=== PATIENT | female | born 1955 | race Caucasian/White ===

== ENCOUNTER 2017-03-29 07:27 | Day surgery (SDC) | payer BC ==
[~2017-03-29] VITALS: Ht 162.6 cm; Wt 51.6 kg
[~2017-03-29 07:27] MED LIST: ESTRPATC TOP; IBUP-1724 PO; LIDOCAINE 1% (10mg/ml) 2ml SDV INJ ONE; LR 1,000 ML IV SCH; OXYC-541 PO
[2017-03-29 07:35] VITALS: BP 112/67; PULSE 54; RESP 16; TEMP 97.7; O2SAT 98; Ht 162.6 cm; Wt 51.6 kg
--- OUTSIDE RECORDS SUMMARY | 2017-03-29 07:37 | XMS REPORT ---
Author Author Gaby Holder Organization [employer] Address Unknown Phone Unavailable Care Team Providers Care Sediment Remediation Consultant Name Role Phone Gaby Holder Unavailable Allergies No Known Allergies Problems No Known Problems Medications No Known Medications Results No Known Results Summary Purpose eClinicalWorks Submission
--- OUTSIDE RECORDS SUMMARY | 2017-03-29 07:37 | XMS REPORT ---
Author Author Gaby Holder Organization [employer] Address Unknown Phone Unavailable Care Team Providers Care Development Chemist Name Role Phone Gaby Holder Unavailable Allergies No Known Allergies Problems Problem Type Condition Code Onset Dates Condition Status Problem Menopause 627.2 Active Problem Weakness of left leg M62.81 Active Problem Numbness and tingling of leg R20.2 Active Problem Spinal stenosis of lumbosacral region M48.07 Active Problem Raynaud phenomenon 443.0 Active Problem Degenerative lumbar spinal stenosis 724.02 Active Problem Raynauds disease without gangrene I73.00 Active Problem Intrinsic eczema L20.84 Active Medications No Known Medications Results No Known Results Summary Purpose eClinicalWorks Submission
--- OUTSIDE RECORDS SUMMARY | 2017-03-29 07:37 | XMS REPORT ---
Author Author Gaby Holder Organization [employer] Address Unknown Phone Unavailable Care Team Providers Care Gas Distribution Supervisor Name Role Phone Gaby Holder Unavailable Allergies No Known Allergies Problems Problem Type Condition Code Onset Dates Condition Status Problem Degenerative lumbar spinal stenosis 724.02 Active Problem Menopause 627.2 Active Problem Raynaud phenomenon 443.0 Active Medications No Known Medications Results No Known Results Summary Purpose eClinicalWorks Submission
--- OUTSIDE RECORDS SUMMARY | 2017-03-29 07:37 | XMS REPORT ---
Author Author Gaby Holder Organization [employer] Address Unknown Phone Unavailable Care Team Providers Care Contact Person Name Role Phone Gaby Holder CP Unavailable Allergies, Adverse Reactions, Alerts Substance Reaction Event Type N.K.D.A. Info Not Available Non Drug Allergy Problems Problem Type Condition Code Onset Dates Condition Status Assessment Weakness of left leg M62.81 Active Problem Menopause 627.2 Active Assessment Spinal stenosis of lumbosacral region M48.07 Active Problem Weakness of left leg M62.81 Active Problem Numbness and tingling of leg R20.2 Active Problem Spinal stenosis of lumbosacral region M48.07 Active Problem Raynaud phenomenon 443.0 Active Problem Degenerative lumbar spinal stenosis 724.02 Active Problem Raynauds disease without gangrene I73.00 Active Problem Intrinsic eczema L20.84 Active Assessment Intrinsic eczema L20.84 Active Assessment Raynauds disease without gangrene I73.00 Active Assessment Numbness and tingling of leg R20.2 Active Medications Medication Code System Code Instructions Start Date End Date Status Dosage Clobestasol NDC 0 0.05% topically BID Oct 26, 2015 as directed Mobic [facility] [address]-08 7.5 MG Orally Once a day Oct 26, 2015 1 tablet [place] [facility] [address]-00 5-325 MG Orally every 6 hrs March 01, 2015 1 tablet as needed Procedures Procedure Coding System Code Date OFFICE VISITEST PT CPT-4 76073 Oct 26, 2015 Vital Signs Date/Time: Oct 26, 2015 Blood Pressure Systolic 108 mm Hg Height 64 in Weight 116.8 lbs BMI 20.05 Index Blood Pressure Diastolic 72 mm Hg Results No Known Results Summary Purpose eClinicalWorks Submission
--- OUTSIDE RECORDS SUMMARY | 2017-03-29 07:37 | XMS REPORT ---
Author Author Gaby Holder Organization [employer] Address Unknown Phone Unavailable Care Team Providers Care Plant Manager Name Role Phone Gaby Holder Unavailable Allergies No Known Allergies Problems No Known Problems Medications No Known Medications Results No Known Results Summary Purpose eClinicalWorks Submission
--- OUTSIDE RECORDS SUMMARY | 2017-03-29 07:37 | XMS REPORT ---
Author Author Gaby Holder [facility] e[employer] Address Unknown Phone Unavailable Care Team Providers Care Harbor Engineer Name Role Phone Gaby Holder Unavailable Allergies, Adverse Reactions, Alerts Substance Reaction Event Type N.K.D.A. Info Not Available Non Drug Allergy Problems Problem Type Condition ICD-9 Code Onset Dates Condition Status Problem Degenerative lumbar spinal stenosis 724.02 Active Problem Menopause 627.2 Active Problem Raynaud phenomenon 443.0 Active Assessment Menopause 627.2 Active Assessment Degenerative lumbar spinal stenosis 724.02 Active Assessment Raynaud phenomenon 443.0 Active Medications Medication Code System Code Instructions Start Date End Date Status Dosage Amlodipine Besylate [facility] [address]-71 2.5 MG Orally daily March 01, 2015 1 tablet Vivelle-Dot [facility] [address]-28 0.0375 MG/24HR Transdermal 1 patch to skin [place] [facility] [address]-55 5-325 MG Orally every 6 hrs March 01, 2015 1 tablet as needed Procedures Procedure Coding System Code Date OFFICE VISITEST PT CPT-4 49509 Jul 27, 2015 Vital Signs Date/Time: Jul 27, 2015 Blood Pressure Systolic 115 mm Hg Height 64 in Weight 114.7 lbs BMI 19.69 Index Oximetry 98 % Cardiac Monitoring Heart Rate 62 /min Blood Pressure Diastolic 75 mm Hg Results No Known Results Summary Purpose eClinicalWorks Submission
--- OUTSIDE RECORDS SUMMARY | 2017-03-29 07:37 | XMS REPORT ---
Author Author Gaby Holder Organization [employer] Address Unknown Phone Unavailable Care Team Providers Care Press Tender Incendiary Grenade Name Role Phone Gaby Holder Unavailable Allergies No Known Allergies Problems No Known Problems Medications No Known Medications Results No Known Results Summary Purpose eClinicalWorks Submission
--- OUTSIDE RECORDS SUMMARY | 2017-03-29 07:37 | XMS REPORT | Referral Summary ---
Author Organization Unknown Address Unknown Phone Unavailable Care Team Providers Care Mine Wirer Name Role Phone Cammie Rockwell Primary Care Physician [phone] Encounter [facility] [id number] Date(s): 01/21/15 - 01/21/15 [address] [facility] Alvarez, Henrik, Family Medicine [address] [place] [address] Discharge Diagnosis: Left sided sciatica Discharge Diagnosis: Fatigue Discharge Diagnosis: Xerosis of skin Discharge Disposition: Home or Self Care Attending Physician: Mariaelena Rockwell MD Admitting Physician: Mariaelena Rockwell MD Vital Signs Most recent to 1 oldest [Reference Range]: Apical Heart Rate 14 bpm [60-100 bpm] *LOW* (01/21/15 9:41 AM) Peripheral Pulse 64 bpm Rate [60-100 bpm] (01/21/15 9:41 AM) Blood Pressure 98/64 mmHg [90-140/60-90 mmHg] (01/21/15 9:41 AM) Problem List Condition Effective Dates Status Health Status Informant Xerosis of Active skin(Confirmed) Fatigue(Confirmed) Active Mitral valve Active disorder (disorder)(Confirmed ) Left sided Active sciatica(Confirmed) Allergies, Adverse Reactions, Alerts Substance Reaction Severity Status aspirin Active Medications Percocet 5/325 oral tablet 1 tabs, Oral, q4hr, as needed for pain, # 30 tabs, 0 Refill(s) Start Date: 01/21/15 Stop Date: 02/15/15 Status: Ordered Vivelle-Dot 0.0375 mg/24 hours twice weekly transdermal film, extended release 1 patches, Topical, 2x/Wk, # 24 patches, 1 Refill(s), called to pharmacy (Rx) Start Date: 06/11/14 Status: Ordered Results Hematology Most recent to 1 oldest [Reference Range]: WBC [4.8-10.8 K/uL] 4.0 K/uL *LOW* (01/21/15:25 AM) RBC [4.00-5.20 M/uL] 4.46 M/uL (01/21/15 10: AM) Hgb [12.0-16.0 14.6 gm/dL gm/dL] (01/21/15 10: AM) Hct [37.0-47.0 %] 42.3 % (01/21/15 AM) MCV [82.0-99.0 fL] 94.8 fL (01/21/15: AM) MCH [27.0-32.0 pg] 32.7 pg *HI* (01/21/15:) MCHC [32.0-36.0 34.5 gm/dL gm/dL] (01/21/15: AM) RDW [11.5-14.5 %] 12.8 % (01/21/15: AM) Platelet [150-400 183 K/uL K/uL] (01/21/15 10:25 AM) MPV [8.8-14.8 fL] 11.9 fL (01/21/15 10:25 AM) Immature 0.0 % Granulocytes (01/21/15:) [0.0-1.0 %] Neutrophils [51-75 54 % %] (01/21/15:25 AM) Lymphocytes [20-46 39 % %] (01/21/15: AM) Monocytes [4-11 %] 5 % (01/21/15:25 AM) Eosinophils [0-4 %] 2 % (01/21/15 10:25 AM) Basophils [0-2 %] 0 % (01/21/15 10:25 AM) Neutro Absolute 2.16 THOUS [1.90-7.00 THOUS] (01/21/15 10:25 AM) Lymph Absolute 1.57 THOUS [0.80-3.30 THOUS] (01/21/15 10:25 AM) [place] Absolute 0.21 THOUS [0.30-1.00 THOUS] *LOW* (01/21/15:25 AM) Eos Absolute 0.06 THOUS [0.00-0.50 THOUS] (01/21/15 10:25 AM) Baso Absolute 0.01 THOUS [0.00-0.20 THOUS] (01/21/15 10:25 AM) Sed Rate [0-23 6 mm/hr mm/hr] (01/21/15:25 AM) Chemistry Most recent to 1 oldest [Reference Range]: Sodium Lvl [135-144 142 mEq/L mEq/L] (01/21/15:25 AM) Potassium Lvl 5.0 mEq/L [3.5-5.2 mEq/L] (01/21/15:25 AM) Chloride [99-111 104 mEq/L mEq/L] (01/21/15: AM) CO2 [22-31 mEq/L] 24 mEq/L (01/21/15:25 AM) AGAP [3-20] 14 (01/21/15:25 AM) BUN [10-20 mg/dL] 12 mg/dL (01/21/15:25 AM) Glucose Lvl [70-99 78 mg/dL mg/dL] (01/21/15:25 AM) Creatinine Lvl 0.87 mg/dL [0.57-1.11 mg/dL] (01/21/15:25 AM) eGFR [>60 mL/min] >60 mL/min 2 (01/21/15:25 AM) Calcium Lvl 9.9 mg/dL [8.9-10.5 mg/dL] (01/21/15:25 AM) Albumin Lvl [3.5-5.0 4.4 gm/dL gm/dL] (01/21/15:25 AM) Total Protein 7.0 gm/dL [6.2-8.1 gm/dL] (01/21/15:25 AM) Globulin [1.8-4.0 2.6 gm/dL gm/dL] (01/21/15:25 AM) ALT [0-55 unit/L] 22 unit/L (01/21/15:25 AM) AST [5-34 unit/L] 29 unit/L 1 (01/21/15:25 AM) Alk Phos [40-150 52 unit/L unit/L] (3/5/15 10:25 AM) Bili Total [0.2-1.2 1.0 mg/dL mg/dL] (01/21/15 10:25 AM) TSH with Reflex Free 0.94 T4 [0.35-4.94] (01/21/15 10:25 AM) 1Result Comment: Specimen slighly hemolyzed. LDH, AST and Direct Bilirubin may be affected. 2Result Comment: Multiply eGFR results by 1.21 for race. Immunizations Vaccine Date Refusal Reason influenza virus vaccine, live 11/04/13 influenza virus vaccine, live 11/14/12 influenza virus vaccine, live 10/10/10 influenza virus vaccine, live 10/01/08 influenza virus vaccine, live 11/21/07 influenza virus vaccine, live 10/29/06 tetanus-diphth toxoids (Td) adult/adol 06/12/03 Procedures Procedure Date Related Diagnosis Body Site Collection of venous blood by venipuncture 01/21/15 Social History Social History Type Response Smoking Status Never smoker Assessment and Plan Extracted from: Title: Ambulatory Patient Education Author: Mariaelena Rockwell MD Date: 01/21 Anesthesiology Epidural Steroid Injection An epidural steroid injection is given to relieve pain in the neck, back, or legs. This procedure involves injecting a steroid and numbing medicine (local anesthetic ) into the epidural space. The epidural space is the space between the outer covering of the spinal cord and the vertebra. The epidural steroid injection helps in reducing the pain that is caused by the irritation or swelling of the nerve root. However, it does not cure the underlying problem. The injection may be given for the following conditions: Changes in the soft, gel-like cushion between two vertebrae (disk ) due to wear and tear. A reduction in the space within the spinal canal. Slipped or herniated disk. Low back (lumbar ) sprain. Sciatica. This is shooting pain that radiates down the buttocks and the back of the leg due to compression of the nerve. Traumatic compression fracture of the vertebra. Pain that develops after a surgery of the spine. Pain that arises after an attack of viral infection affecting the nerves ( shingles ). LET YOUR CAREGIVER KNOW ABOUT: Allergies to food or medicine. Medicines taken, including vitamins, herbs, eyedrops, [id number] medicines, and creams. Use of steroids (by mouth or creams). Previous problems with anesthetics or numbing medicines. History of bleeding problems or blood clots. Previous surgery. Other health problems, including diabetes and kidney problems. Possibility of , if this applies. RISKS AND COMPLICATIONS The complications due to the needle insertion are: Headache. Bleeding. Infection. Allergic reaction to the medicines. Damage to the nerves. The complications due to the steroid are: Weight gain. Hot flashes. Mood swings. Lack of sleep. Increase in blood sugar levels, especially if you are diabetic. Retention of water. The response to this procedure depends on the underlying cause of the pain and its duration. Patients who have long-term (chronic ) pain are less likely to benefit from epidural steroids than are patients whose pain comes on strong and suddenly. BEFORE THE PROCEDURE The caregiver may ask about your symptoms, do a detailed exam, and advise some tests. These tests may include imaging studies. Your caregiver may review the results of your tests and discuss the procedure with you. Ask your caregiver about changing or stopping your regular medicines. You may be advised to stop taking blood-thinning medicines a few days before the procedure. You may also be given medicines to reduce your anxiety. PROCEDURE You will remain awake during the whole procedure. Although, you may receive medicine to make you sleepy. You will be asked to lie on your stomach. The site of the injection is cleansed. Then, the injection site is numbed using a small amount of medicine that numbs the area (local anesthetic ). A hollow needle is directed through your skin into the epidural space with the help of an X-ray. The X-ray helps to ensure that the steroid is delivered closest to the affected nerve. You may have some minimal discomfort at this time. Once the needle is in the right position, the local anesthetic and the steroid are injected into the epidural space. The needle is then removed. The skin is cleaned and a bandage is applied. The entire procedure takes only a few minutes, although repeated injections may be required (up to 3 to 4 injections over several weeks). AFTER THE PROCEDURE You may be monitored for a short time before you go home. You may feel weakness or numbness in your arm or leg, which disappears within 1 to 2 [address] must [address] you home or accompany you home if you are taking a taxi. You may be allowed to eat, drink, and take your regular medicine. Your pain may improve or worsen right after the procedure. You may feel the beneficial effect of the steroid a few days later. You may have soreness at the site of the injection. If you have only partial relief of the pain, the injection may be repeated once or even twice within 4 to 8 weeks of the initial injection. Document Released: 02/11/2009 Document Revised: 01/27/2013 Document Reviewed: [facility] [place] Patient Information 2014 [employer]. No follow up information was provided. Extracted from: Title: Office Visit Note- left Author: Mariaelena Rockwell MD Date: 01/21/15 sciatica Assessment/Plan Fatigue Labs today Ordered: C-Reactive Protein (CRP) CBC w/ Differential Comprehensive Metabolic Panel Office Visit Level 4 Est 07412 Sedimentation Rate TSH with Reflex Free T4 Left sided sciatica This is a patient who rarely complains. She has not returned since last year when we discussed her back pain initially. Clearly this is markedly worsened and has become disabling. I no longer think piriformis is involved here. Much more likely this represents lumbar disease either in the disc or perhaps degenerative changes. She requires an MRI to demonstrate findings to we can proceed with an epidural steroid injection. She may require a decompression surgery. Prescription for Percocet is given so that she can get comfortable and rest at night. Ordered: Office Visit Level 4 Est 46670 Xerosis of skin Discussed using hand environmental maintenance worker gel insert washing her hands often. Also recommended new skin to apply the cracks when they occur. [place] healing and cremate also be of benefit. We will get labs as well. Ordered: Office Visit Level 4 Est 46603 Orders: oxyCODONE-acetaminophen, 1 tabs, Oral, q4hr, as needed for pain, # 30 tabs, 0 Refill(s)
--- OUTSIDE RECORDS SUMMARY | 2017-03-29 07:38 | XMS REPORT ---
Author Author Gaby Holder Organization [employer] Address Unknown Phone Unavailable Care Team Providers Care Denture Finisher Name Role Phone Gaby Holder Unavailable Allergies [...]
--- OUTSIDE RECORDS SUMMARY | 2017-03-29 07:38 | XMS REPORT ---
Author Author Gaby Holder Organization [employer] Address Unknown Phone Unavailable Care Team Providers Care Groover And Turner Name Role Phone Gaby Holder Unavailable Allergies [...]
--- OUTSIDE RECORDS SUMMARY | 2017-03-29 07:38 | XMS REPORT ---
Author Author Gaby Holder Organization [employer] Address Unknown Phone Unavailable Care Team Providers Care Molding Supervisor Name Role Phone Gaby Holder Unavailable [...]
--- OUTSIDE RECORDS SUMMARY | 2017-03-29 07:38 | XMS REPORT ---
Author Author Gaby Holder Organization [employer] Address Unknown Phone Unavailable Care Team Providers Care Brine Mixer Operator Name Role Phone Gaby Holder Unavailable Allergies No Known Allergies Problems Problem Type Condition Code Onset Dates Condition Status Problem Intrinsic eczema L20.84 Active Problem Numbness and tingling of leg R20.2 Active Problem Raynauds disease without gangrene I73.00 Active Problem Stenosis, spinal, lumbar M48.06 Active Problem Menopausal and female climacteric states N95.1 Active Problem Spondylolisthesis M43.10 Active Problem Spinal stenosis of lumbosacral region M48.07 Active Problem Weakness of left leg M62.81 Active Problem Chronic insomnia F51.04 Active Problem Synovial cyst of lumbar facet joint M71.38 Active Problem Menopause 627.2 Active Problem Degenerative lumbar spinal stenosis 724.02 Active Problem Raynaud phenomenon 443.0 Active Medications No Known Medications Results No Known Results Summary Purpose eClinicalWorks Submission
--- OUTSIDE RECORDS SUMMARY | 2017-03-29 07:38 | XMS REPORT ---
Author Author Gaby Holder Organization [employer] Address Unknown Phone Unavailable Care Team Providers Care Rn Perinatal Name Role Phone Gaby Holder Unavailable Allergies No Known Allergies Problems Problem Type Condition Code Onset Dates Condition Status Assessment Synovial cyst of lumbar facet joint M71.38 Active Problem Menopause 627.2 Active Assessment Stenosis, spinal, lumbar M48.06 Active Assessment Spondylolisthesis M43.10 Active Problem Weakness of left leg M62.81 [...]
--- OUTSIDE RECORDS SUMMARY | 2017-03-29 07:38 | XMS REPORT ---
Author Author Gaby Holder [facility] eClinicalWorks Address Unknown Phone Unavailable Care Team Providers Care Strategic Accounts Manager Name Role Phone Gaby Holder CP Unavailable Allergies, Adverse Reactions, Alerts Substance Reaction Event Type N.K.D.A. Info Not Available Non Drug Allergy Problems Problem Type Condition Code Onset Dates Condition Status Assessment Raynaud phenomenon 443.0 Active Assessment Degenerative lumbar spinal stenosis 724.02 Active Assessment Degenerative disk disease 722.6 Active Medications Medication Code System Code Instructions Start Date End Date Status Dosage Amlodipine Besylate [facility] [address]-90 2.5 MG Orally daily March 01, 2015 1 tablet [place] [facility] [address]-99 5-325 MG Orally every 6 hrs March 01, 2015 1 tablet as needed Vivelle-Dot [facility] [address]-84 0.0375 MG/24HR Transdermal 1 patch to skin Procedures Procedure Coding System Code Date RA FACTOR CPT-4 47396 March 01, 2015 OFFICE VISITNEW PT CPT-4 99960 March 01, 2015 Antinuclear Antibodies CPT-4 62032 March 01, 2015 Vital Signs Date/Time: March 01, 2015 Blood Pressure Systolic 106 mm Hg Height 64 in Weight 113.2 lbs BMI 19.43 Index Oximetry 99 % Cardiac Monitoring Heart Rate 59 /min Blood Pressure Diastolic 76 mm Hg Results No Known Results Summary Purpose eClinicalWorks Submission
--- OUTSIDE RECORDS SUMMARY | 2017-03-29 07:38 | XMS REPORT ---
Author Author Gaby Holder [facility] eClinicalWorks Address Unknown Phone Unavailable Care Team Providers Care Community Engagement Manager Name Role Phone Gaby Holder Unavailable Allergies, [...] cyst of lumbar facet joint M71.38 Active Assessment Chronic insomnia F51.04 Active Assessment Menopausal and female climacteric states N95.1 Active Assessment Synovial cyst of lumbar facet joint M71.38 Active Assessment Pre-op evaluation Z01.818 Active Problem Menopause 627.2 Active Assessment Stenosis, spinal, lumbar M48.06 Active Problem Degenerative lumbar spinal stenosis 724.02 Active Assessment Spondylolisthesis M43.10 Active Problem Raynaud phenomenon 443.0 Active Medications Medication Code System Code Instructions Start Date End Date Status Dosage Clobestasol NDC 0 0.05% topically BID Oct 26, 2015 as directed [facility] [address]-68 5-325 MG Orally every 6 hrs March 01, 2015 1 tablet as needed Mobic [facility] [address]-72 7.5 MG Orally Once a day Oct 26, 2015 1 tablet Trazodone HCl [facility] [address]-09 50 MG Orally Once a day Nov 29, 2015 1 tablet at bedtime Procedures Procedure Coding System Code Date COMP PROFILE CPT-4 81212 Nov 29, 2015 URINALYSIS CPT-4 29065 Nov 29, 2015 CBC CPT-4 20988 Nov 29, 2015 EKG WITH INTERPRETAT CPT-4 91389 Nov 29, 2015 CHEST XRAY 2 VIEW CPT-4 31549 Nov 29, 2015 OFFICE VISITEST PT CPT-4 35410 Nov 29, 2015 Vital Signs Date/Time: Nov 29, 2015 Blood Pressure Systolic 110 mm Hg Height 64 in Weight 112.4 lbs BMI 19.29 Index Oximetry 99 % Cardiac Monitoring Heart Rate 61 /min Blood Pressure Diastolic 78 mm Hg Results Name Result Date Reference Range Unit Abnormality Flag Urinalysis ----BLOOD NEG 20151129 NEGATIVE ----BILIRUBIN NEG 20151129 NEGATIVE ----OTHER CASTS 0 20151129 NONE/LPF lpf ----LEUKOCYTES NEG 73534998 NEGATIVE ----MUCOUS 0 91252314 NONE/HPF hpf ----NITRITES NEG 59273720 NEGATIVE ----CRYSTALS 0 97331213 NONE/HPF hpf ----pH 8 30230379 5-8 ----BACTERIA 0 20151129 NONE/HPF hpf ----PROTEIN NEG 10835364 NEGATIVE ----SQUAMOUS EPITH OCCASIONAL 20151129 FEW/HPF hpf ----GLUCOSE NORM 20151129 NEG MG/DL ---- RBC 0-1 63816409 0-2/HPF hpf ----KETONES NEG 03406171 NEGATIVE ----COLOR YEL 20151129 YELLOW-STRAW ----UROBILINOGEN NORM 27772920 0 - 1.0 MG/DL ---- WBC 0-1 19056056 0-5/HPF hpf ----CLARITY CLEAR 20151129 CLEAR ----SPEC GRAVITY 1.002 75064550 1.016-1.022 CBC ----MCV 95.0 91615352 81.0-96.0 FL ----HCT 43.7 08118225 36.0-46.0 % ----MCHC 33.6 75560297 32.0-35.0 G/DL ----MCH 32.0 77497205 27.0-33.0 PG ----EO# 0.1 [id number] 0.0-0.2 X10^3/UL ----PLT 182 96922567 130-400 X10^3 ----EO% 1.5 23112505 0.0-3.0 % ----RDW 12.7 98593821 11.5-15.5 % ----MO# 0.2 [id number] 0.1-0.6 X10^3/UL ----MO% 4.7 [id number] 1.7-9.3 % ----LY# 1.6 [id number] 1.2-3.4 X10^3/UL ----BA# 0.0 [id number] 0.0-0.1 X10^3/UL ----BA% 0.2 49404636 0.0-1.0 % ----HGB 14.7 76439911 11.6-16.0 G/DL ----RBC 4.60 13581658 3.90-5.20 X10^6 ----MPV 11.9 [id number] 8.9-12.7 FL ----WBC 4.1 [id number] 4.0-10.0 X10^3/UL ----NE% 53.8 79452269 42.2-75.2 % ----NE# 2.2 [id number] 1.4-6.5 X10^3/UL ----LY% 39.8 [id number] 20.5-51.1 % COMPREHENSIVE CHEM PROFILE ----SODIUM 145 81151360 133-145 MMOL/L ----TOTAL BILI 0.52 42839327 0.00-1.00 MG/DL ----CHLORIDE 101 46525163 96-108 MMOL/L ----POTASSIUM 4.0 03660524 3.3-5.1 MMOL/L ----CALCIUM 10.3 27845802 8.7-10.3 MG/DL ----AST/SGOT 28 21089753 5-40 U/L ----CO2 30 81179020 23-31 MMOL/L ----TOTAL PROTEIN 7.3 96280956 5.9-8.4 G/DL ----eGFR If Am 77 48280679 >60 ml/min/1.73m^2 ----ALBUMIN 4.9 12476311 3.2-5.2 G/DL ----eGFR If Non Am 64 85629478 >60 ml/min/1.73m^2 ----BUN 14 20151129 8-23 MG/DL ----ALT/SGPT 25 20151129 5-40 U/L ----ALK PHOS 58 20151129 34-114 U/L ----CREATININE 0.9 20151129 0.4-1.1 MG/DL ----GLUCOSE 85 20151129 60-99 MG/DL ----GLOBULIN 2.4 20151129 2.0-4.4 G/DL Summary Purpose eClinicalWorks Submission
--- NOTE | 2017-03-29 07:45 | ANESPREOP ---
Anesthesia Record Date and Time DATE: 03/29/17 TIME: 07:43 Pre-Op Diagnosis crcs Proposed Surgical Procedure COLONOSCOPY Allergies: Coded Allergies: aspirin (Verified Allergy, Unknown, 03/28/17) Ht/Wt/BMI Height: 5 ' 4.00 " Weight: 51.600 kg BMI: 19.5 kg/m2 Vital Signs Date Time Temp Pulse Resp B/P Pulse Ox O2 Delivery O2 Flow Rate FiO2 03/29/17 07:35 97.7 54 16 112/67 98 Room Air Medications Inpatient Medications Current Medications Medications (Trade) Dose Ordered Sig/Cecy Start Time Stop Time Status Last Admin Dose Admin Lactated Ringer's (Lactated Ringers) 1,000 ml @ 50 mls/hr Q20H 03/29/17 07:00 Estradiol (Vivelle-Dot TDS 0.0375 mg/d (BW)) 1 Each Patch.tdsw, 1 UNIT TOP 1Q3W, (Reported) Ibuprofen (Ibuprofen) 200 Mg Tablet, 2 TAB PO Q4H PRN for PAIN, (Reported) Oxycodone HCl/Acetaminophen (Oxycodone-Acetaminophen 5-325) 5-325 Tablet, 1 TAB PO DAILY PRN for PAIN, (Reported) Currently on Beta Larissa: No Medical/Surgical History Anesthesia PMH: Reports: Arthritis (HANDS), Denies: *Diabetes, Anesthesia Reactions (NO AIRWAY ISSUES), Cancer, Clotting Problems, Glaucoma, Malignant Hyperthermia, Renal Disease, Thyroid Disease Smoking Status: Never smoker Has pt. smoked today?: No Use Chewing Tobacco?: No Second Hand Exposure: No Substance Use Type: does not use Substance last used: unknown Alcohol Intake: none Last Drink: unknown HX of Last Menstrual Period: 2003 Past Surgical History Orthopedic Surgeries: Yes - LAMNECTOMY Abdominal Surgeries: Genitourinary Surgeries: Cardiac Surgeries: Yes - ABLATION FOR TACHYCARDIA Endocrine Surgeries: Reproductive Surgeries: Yes - HYSTERECTOMY Neurological Surgeries: Ear Surgeries: Nose Surgeries: Throat Surgeries: Other Surgeries: Yes - COLONOSCOPY Anesthesia Adverse Reactions: FOUND none Family Hx of Anesthesia Advers: none Hx of Motion Sickness: No Pertinent Findings EKG Rhythm: Sinus Rhythm Physical Exam Respiratory: Bilat breath sounds equal, Lungs clear Cardiovascular: FOUND Regular rate, rhythm, FOUND No murmur Airway Assessment Mallampati Score: II TMD: 3 Fingerbreadths Neck Extension: Good Overall Assessment: No Airway Concerns ASA: 2 Discussion Discussed risks/options/alternatives of anesthesia and questions answered. Patient consents. Nursing pain assessment noted. Attestation Statement Prior to the delivery of any anesthetic medication, I examined the patient, developed the plan, obtained the patient's consent and discussed the risk and benefits of the procedure with the patient/guardian. AMANDEEP SOLIZ [employer]ITION ASSEMBLER March 29, 2017 07:45
[2017-03-29 07:48] VITALS: PULSE 58; RESP 16
[2017-03-29] MEDS ORDERED: PROPOFOL 200mg 20 ML IV ONE ×2 (09:40→10:04)
[2017-03-29] MEDS ORDERED: LIDOCAINE 1% (10mg/ml) 2ml SDV ONE (09:40)
[2017-03-29 10:23] VITALS: BP 94/55; PULSE 58; RESP 15; TEMP 97; O2SAT 98
--- NOTE | 2017-03-29 10:32 | ANESPO ---
Post-Op Note Date 03/29/17 Time: 10:31 Status Pt Participated in Evaluation: Pt participated in person Vital Signs Date Time Temp Pulse Resp B/P Pulse Ox O2 Delivery O2 Flow Rate FiO2 03/29/17 07:48 58 16 03/29/17 07:35 97.7 112/67 98 Room Air Respiratory Function: Airway patent, Regular respirations Cardiovascular Function: Regular pulse Mental Status: Alert/oriented Pain Level Intensity: 0 (0) Hydration: Taking po fluids, IV infusing Complications during Recovery None apparent Post-Anesthesia Notes PT. DADA. WELL Follow-Up Instructions Instructions Per Surgeon Additional Information NONE AMANDEEP SOLIZ CRNA March 29, 2017 10:32
[2017-03-29 10:38] VITALS: BP 97/58; PULSE 56; RESP 16; TEMP 97.2; O2SAT 100
[2017-03-29 10:53] VITALS: BP 106/68; PULSE 56; RESP 16; O2SAT 97
--- NOTE | 2017-03-29 16:29 | OPNOTEF ---
DATE OF PROCEDURE 03/29/2017 SURGEON Armen Norman MD PREOPERATIVE DIAGNOSIS Colorectal cancer surveillance/family history of colon cancer. POSTOPERATIVE DIAGNOSIS Colorectal cancer surveillance/family history of colon cancer, colonic polyp x1 located at 30 cm from the anal verge. PROCEDURE Colonoscopy with polypectomy via hot forceps technique. ANESTHESIA TIVA BRIEF HISTORY/INDICATIONS Jai is a 61-year-old patient at [facility] who was seen for comprehensive exam. They discussed colorectal cancer surveillance and decided to proceed with colonoscopy as part of her screening. For completeness please refer to office notes. FINDINGS Upon colonoscopy there was no evidence for angiodysplastic lesions, diverticula, or mindy malignancies. The patient was found to have one colonic polyp. This polyp was located at 30 cm from the anal verge. It was approximately 4-5 mm in diameter and was removed via hot forceps technique and sent to pathology. DESCRIPTION OF PROCEDURE After informed consent was obtained, the patient was brought to the endoscopy suite and placed on the table in the left lateral decubitus position. The patient subsequently underwent total intravenous anesthesia by the nurse etcher printed circuit boards per my request. Next, a digital rectal examination was performed; normal sphincter tone. No rectal masses were appreciated. An Olympus colonoscope was inserted in the anus and advanced with the lumen of the colon under direct visualization at all times until the cecum was ascertained. Triangulation of the tenia coli, ileocecal valve and appendiceal lumen were all visualized. The scope was then slowly withdrawn, again while maintaining visualization of the lumen at all times. As stated above, the entire colon was without evidence for angiodysplastic lesions, diverticula or mindy malignancies. The patient was found to have one colonic polyp as described above. This polyp was removed in its entirety and sent to pathology. Photographs were taken for documentation. The scope continued to be withdrawn until it was removed from the patient's anal verge. The patient tolerated the procedure without difficulty and was sent back to the preoperative area in stable condition. We will await the biopsy results to make further recommendations. Due to her family history, the max interval will be five years. If this polyp is a tubular adenoma, we will be looking at three years. ANUPAMA
== END 2017-03-29 11:01 | disposition home or self-care (01) ==
LOC: NSC 07:27
PROVIDERS: ATTEND Family Medicine
DX: Z12.11 Encounter for screening for malignant neoplasm of colon (principal); D12.6 Benign neoplasm of colon, unspecified; Z80.0 Family history of malignant neoplasm of digestive organs; Z79.890 Hormone replacement therapy; M51.36 Other intervertebral disc degeneration, lumbar region; Z79.899 Other long term (current) drug therapy
CPT/HCPCS: 45384; J2704; J7120